=== PATIENT | male | born 1985 | race Caucasian/White ===

== ENCOUNTER 2025-10-16 21:50 | Emergency (ER) | payer SELFPAY ==
[~2025-10-16] VITALS: Ht 175.3 cm; Wt 82.0 kg
[2025-10-16 21:54] VITALS: TEMP 98.1; O2SAT 100
[2025-10-16] MEDS: TETRACAINE 0.5% OPHTH DROPS 4ML BOTHEYE ONE (23:00)
[2025-10-16] MEDS: ACETAMINOPHEN 325MG TABLET PO ONE (23:35)
[2025-10-17] MEDS ORDERED: NAPR-681 MT (00:20)
[2025-10-17 00:51] VITALS: BP 109/61; PULSE 77; RESP 16; O2SAT 100
== END 2025-10-17 00:54 | disposition home or self-care (01) ==
LOC: ER 21:50
DX: S00.01XA Abrasion of scalp, initial encounter (principal); H10.213 Acute toxic conjunctivitis, bilateral; S00.03XA Contusion of scalp, initial encounter; Y04.0XXA Assault by unarmed brawl or fight, initial encounter; Y93.89 Activity, other specified; Y92.89 Other specified places as the place of occurrence of the external cause; Y99.8 Other external cause status
CPT/HCPCS: 99283